=== PATIENT | female | born 1985 | race Caucasian/White ===

== ENCOUNTER 2016-12-30 18:13 | Emergency (ER) | payer SELFPAY ==
[2016-12-30 18:25] VITALS: BP 118/61; BMI 25.7
--- NOTE | 2016-12-30 19:08 | DR.GENAD ---
HPI - PCP Primary Care Physician: ANUJA - Complaint/Symptoms Chief Complaint:: PATIENT STATED SHE HAS A RASH ON HER BODY THAT ITCHES REAL BAD. SHE HAS BEEN SEE IN [facility] ER ABOUT 2 WEEKS AGO. - Source History Provided: Patient - Mode of Arrival Mode of Arrival: Ambulatory - Timing Onset of Chief Complaint: 12/14/16 PMH - PMH Past Medical History: Yes Past Medical History: Anxiety, Asthma Past Medical History Comment: BIPOLAR Past Surgical History: Yes Surgical History: [employer] Surgery, Hysterectomy - Family History History of Family Medical Conditions: No - Social History Does patient currently use any type of tobacco product: Yes Have you used tobacco products in the last 12 months: Yes Type of Tobacco Use: Cigarettes Does any household member use tobacco: Yes Alcohol Use: None Do you use any recreational Drugs:: No Lives With: Family Lives Where: Home - infectious screening In the last 2 months have you had wt loss of >10#?: NO Have you had fever, night sweats or hemotysis?: No Have you traveled outside the country in the last 6 months?: No Isolation: Standard ROS - Review of Systems Constitutional: No Symptoms Reported Eyes: No Symptoms Reported ENTM: No Symptoms Reported Respiratoy: No Symptoms Reported Cardiovascular: No Symptoms Reported Gastrointestinal/Abdominal: No Symptoms Reported Genitourinary: No Symptoms Reported Neurological: No Symptoms Reported Musculoskeletal: No Symptoms Reported Integumentary: No Symptoms Reported Hematologic/Lymphatic: No Symptoms Reported Endocrine: No Symptoms Reported Psychiatric: No Symptoms Reported All Other Systems: Reviewed and Negative PE - Vital Signs Vitals: Temperature 99.3 F Pulse Rate 80 Respiratory Rate 16 Blood Pressure 118/61 O2 Sat by Pulse Oximetry 100 - General Limitations: No Limitations General Appearance: Alert - Head Head Exam: Normal Inspection, Atraumatic - Eyes Eye exam: Normal Appearance, PERRL, EOMI - ENT ENT Exam: Normal Exam External Ear Exam: Normal External Inspection TM/Canal Exam: Bilateral Normal Nose Exam: Normal Nose Exam Mouth Exam: Normal Inspection Throat Exam: Normal Inspection - Neck Neck Exam: Normal Inspection - Chest Chest Inspection: Normal Inspection - Respiratory Respiratory Exam: Normal Lung Sounds Bilat Respiratory Exam: Bilateral Clear to Auscultation - Cardiovascular Cardiovascular Exam: Regular Rate, Normal Rhythm - Abdominal Exam Abdominal Exam: Normal Inspection Abdominal Tenderness: Suprapubic - Extremities Extremities Exam: Normal Inspection - Back Back Exam: Normal Inspection - Neurologic Neurological Exam: Alert, Oriented X3 - Psychiatric Psychiatric Exam: Normal Affect - Skin Skin Exam: Warm, Dry, Intact, Rash (sparse macular pinpoint rash upper extremitties, dermatographic) Course - Reevaluation 1st: Unchanged ROR - Labs Reviewed Laboratory Results Reviewed?: Yes (urine negative) Laboratory: Specimen Type Clean catch urine 12/30/16 19:19 Urine Color Yellow (YELLOW) 12/30/16 19:19 Urine Appearance Clear (CLEAR) 12/30/16 19:19 Urine pH 7.0 (5.0 - 8.0) 12/30/16 19:19 Ur Specific [place] 1.015 (1.000-1.030) 12/30/16 19:19 Urine Protein Negative (NEGATIVE) 12/30/16 19:19 Urine Glucose (UA) Negative (NEGATIVE) 12/30/16 19:19 Urine Ketones Negative (NEGATIVE) 12/30/16 19:19 Urine Occult Blood Negative (NEGATIVE) 12/30/16 19:19 Urine Nitrite Negative (NEGATIVE) 12/30/16 19:19 Urine Bilirubin Negative (NEGATIVE) 12/30/16 19:19 Urine Urobilinogen Normal (NORMAL) 12/30/16 19:19 Ur Leukocyte Esterase Negative (NEGATIVE) 12/30/16 19:19 Urine RBC None seen /HPF (NEGATIVE) 12/30/16 19:19 Urine WBC 0-1 /HPF (NEGATIVE) 12/30/16 19:19 Ur Squamous Epith Cells Few /HPF (NEGATIVE) 12/30/16 19:19 Urine Bacteria Trace /HPF (NEGATIVE) 12/30/16 19:19 Urine Mucus Moderate /HPF (NEGATIVE) 12/30/16 19:19 Ur Culture Indicated? No/not indicated 12/30/16 19:19 - Diagnosis Discharge Problem: Urticaria - Discharge Plan Condition: Stable - Follow ups/Referrals Follow ups/Referrals: NFD,None [Primary Care Provider] - 3 days - Instructions
[2016-12-30 19:36] LABS: BILIRUBIN,URINE NEGATIVE (NEGATIVE); BLOOD/HEMOGLOBIN,URINE NEGATIVE (NEGATIVE); GLUCOSE, URINE NEGATIVE (NEGATIVE); KETONES,URINE NEGATIVE (NEGATIVE); LEUKOCYTE ESTERASE ,URINE NEGATIVE (NEGATIVE); NITRITES,URINE NEGATIVE (NEGATIVE); PROTEIN,URINE NEGATIVE (NEGATIVE); UROBILINOGEN,URINE NORMAL (NORMAL)
[2016-12-30 19:45] LABS: APPEARANCE,URINE CLEAR (CLEAR); BACTERIA,URINE TRACE /HPF (NEGATIVE); COLOR,URINE YELLOW (YELLOW); MUCUS,URINE MODERATE /HPF (NEGATIVE); RBC,URINE NONE SEEN /HPF (NEGATIVE); SQUAMOUS EPITHELIAL CELL,UR FEW /HPF (NEGATIVE)
== END 2016-12-30 20:05 | disposition home or self-care (01) ==
LOC: ER 18:31
DX: L50.8 Other urticaria (principal)
CPT/HCPCS: 81001; 99281; 99282